=== PATIENT | male | born 1955 | race Caucasian/White ===

== ENCOUNTER 2016-12-10 16:25 | Inpatient (IN) | payer OTHER, MEDICAID ==
[~2016-12-10] VITALS: Ht 172.7 cm; Wt 176.9 kg
[2016-12-10 16:20] VITALS: BP 126/64
[2016-12-10] MEDS ORDERED: Albuterol ud Inhalation HHN ONE (17:00)
[2016-12-10] MEDS ORDERED: Ipratropium 0.02% Inh Soln 2.5ml UD HHN ONE (17:00)
[2016-12-10 17:18] LABS: MEAN CORPUSCULAR HGB CONC 28.4 G/DL (32.0-36.0); MEAN CORPUSCULAR VOLUME 98 FL (80-99); MEAN PLATELET VOLUME 6.8 FL (6.5-10.1); PLATELET COUNT 172 K/UL (150-450); RED BLOOD COUNT 4.16 M/UL (4.70-6.10); RED CELL DISTRIBUTION WIDTH 18.6 % (11.6-14.8); WHITE BLOOD COUNT 17.5 K/UL (4.8-10.8)
--- NOTE | 2016-12-10 17:42 | Emergency Room Report ---
History of Present Illness General Chief Complaint: Generalized Weakness Present Illness HPI 61YOM BIBEMS from home for SOB Progressively worse today Denies fever/chills, chest pain, abd pain History of CHF, asthma, cor pulmonale, respiratory failure, hypercapnia per d/w [place] [facility]ist On CPAP at night Known hypercarbia Allergies: Coded Allergies: CEPHALEXIN (Verified Allergy, Unknown, 12/10/16) Patient History Past Medical History: other - see hpi Past Surgical History: none Pertinent Family History: none Social History: Denies: smoking, alcohol use, drug use Immunizations: UTD Reviewed Nursing Documentation: PMH: Agreed, PSxH: Agreed Nursing Documentation-PMH Hx Cardiac Problems: Yes - CHF,COPD ,A-FIB,DM 2 Review of Systems All Other Systems: negative except mentioned in HPI Physical Exam Vital Signs Date Time Temp Pulse Resp B/P (MAP) Pulse Ox O2 Delivery O2 Flow Rate FiO2 12/10/16 16:13 98.8 100 20 126/64 94 Nasal Cannula 3.0 12/10/16 16:50 60 Sp02 EP Interpretation: reviewed, abnormal General Appearance: normal inspection, well appearing, no apparent distress, alert, GCS 15, non-toxic, mild distress, obese Head: normocephalic, atraumatic Eyes: bilateral eye PERRL, bilateral eye EOMI ENT: normal ENT inspection, hearing grossly normal, normal voice Neck: normal inspection, full range of motion, supple, no bony tend Respiratory: normal inspection, lungs clear, normal breath sounds, no respiratory distress, no retraction, no wheezing Cardiovascular #1: no edema, tachycardia, irregularly irregular Gastrointestinal: normal inspection, normal bowel sounds, non tender, soft, no guarding, no hernia Genitourinary: no CVA tenderness Musculoskeletal: normal inspection, back normal, normal range of motion, Farnaz' s Sign negative Neurologic: normal inspection, alert, oriented x3, responsive, park attendant III-XII nml as tested, motor strength/tone normal, speech normal Psychiatric: normal inspection, judgement/insight normal, mood/affect normal Skin: normal inspection, normal color, no rash Procedures Critical Care Time Critical Care Time CC time 40 minutes includes review of labs, EMR, paperwork, reassessment of BIPAP settings, ECG, CXR, d/w Hospitalist at [place], ordering ABx/nebs Medical Decision Making Diagnostic Impression: Primary Impression: Hypoxia Additional Impressions: COPD (chronic obstructive pulmonary disease) Qualified Codes: J44.1 - Chronic obstructive pulmonary disease with (acute) exacerbation Pneumonia Qualified Codes: J18.1 - Lobar pneumonia, unspecified organism Hypercarbia Non-ST elevated myocardial infarction ER Course Dr López approved #[id number] from [place] for admission SOB - likely multifactorial - COPD exacerbation, ?PNA right LL with elevated Leuks, NSTEMI with elevated trop. ECG is Atrial fib but not in RVR. - hypoxia improved on BIPAP, nebs, steroids - Was given Abx for likely PNA. Blood Cx pending - Known hypecarbia - last month CO2 was 94, CO2 80 on ABG. Not hypoxic or altered. - ASA, heparin for NSTEMI Endorsed to Dr Coyne for YASMANI admit at 615pm EKG Diagnostic Results Rate: tachycardiac Rhythm: other - Atrial Fib ST Segments: no acute changes Rhythm Strip Diag. Results EP Interpretation: yes Rate: 94 Rhythm: NSR, no PVC's, no ectopy Chest X-Ray Diagnostic Results Chest X-Ray Diagnostic Results : Chest X-Ray Ordered: Yes # of Views/Limited/Complete: 1 View Indication: Shortness of Breath EP Interpretation: Yes Interpretation: other - Cardiomegaly, ?RLL PNA Electronically Signed by: Dr Manuela Mast MD Last Vital Signs Date Time Temp Pulse Resp B/P (MAP) Pulse Ox O2 Delivery O2 Flow Rate FiO2 12/10/16 17:17 60 12/10/16 17:17 100 35 99 Bi-pap 12/10/16 16:20 98.8 126/64 3.0 Status: improved Disposition: ADMITTED INPATIENT Condition: Critical Referrals: [facility] (PCP) MANUELA MAST M.D. Dec 10, 2016 17:42
[2016-12-10 17:52] LABS: BAND NEUTROPHILS % (MANUAL) 3 % (0-8); LYMPHOCYTES % (MANUAL) 7 % (20-45); NEUTROPHILS % (MANUAL) 77 % (45-75); TOTAL CELLS COUNTED 100
[2016-12-10 17:53] LABS: ANISOCYTOSIS 1+; BASOPHILS % (MANUAL) 0 % (0-2); EOSINOPHILS % (MANUAL) 0 % (0-3); HYPOCHROMASIA 1+; PLATELET ESTIMATE ADEQUATE; PLATELET MORPHOLOGY NORMAL; POLYCHROMASIA 1+
[2016-12-10 18:17] LABS: ABG ALLEN TEST POSITIVE; ABG BASE EXCESS 35.4
[2016-12-10] MEDS ORDERED: Heparin 5000 units/ml inj IV ONE (18:30)
[2016-12-10] MEDS ORDERED: Heparin 25,000u/D5W 500ml 500 ML IV SCH (18:30)
[2016-12-10 18:54] LABS: REFLEX LACTIC ACID YES OR NO YES
[2016-12-10] MEDS ORDERED: UNOBMED (19:22)
[2016-12-10 19:30] VITALS: BP 123/78
[2016-12-10 20:16] LABS: APPEARANCE,URINE CLEAR; KETONES,URINE NEGATIVE (NEGATIVE); LEUKOCYTE ESTERASE ,URINE NEGATIVE (NEGATIVE); NITRITE,URINE NEGATIVE (NEGATIVE); PH,URINE 5 (4.5-8.0); PROTEIN,URINE 2+ (NEGATIVE); UROBILINOGEN,URINE 1 MG/DL (0.0-1.0)
[2016-12-10 20:31] LABS: BACTERIA,URINE FEW /HPF; RBC,URINE 0-2 /HPF (0 - 0); SQUAMOUS EPITHELIAL CELL,UR FEW /LPF (NONE/OCC); WBC,URINE 0-2 /HPF (0 - 0)
[2016-12-10 20:33] LABS: ALANINE AMINOTRANSFERASE 618 U/L (12-78); ALBUMIN/GLOBULIN RATIO 0.7 (1.0-2.7); ANION GAP 4 (5-15); ASPARTATE AMINO TRANSFERASE 739 U/L (15-37); CALCIUM 8.8 MG/DL (8.5-10.1); CARBON DIOXIDE 35 MMOL/L (21-32); CHLORIDE 97 MMOL/L (98-107); CKMB 1.8 NG/ML (0.0-3.6); CREATININE 2.2 MG/DL (0.55-1.30); GLOMERULAR FILTRATION RATE 30.4 mL/min (>60); POTASSIUM 5.2 MMOL/L (3.5-5.1); SODIUM 135 MMOL/L (136-145); TOTAL PROTEIN 7.5 G/DL (6.4-8.2)
[2016-12-10 20:35] LABS: INR 1.8 (0.9-1.1); PROTHROMBIN TIME 18.5 SEC (9.30-11.50)
[2016-12-10 21:00] VITALS: BP 112/70
[2016-12-10] MEDS ORDERED: Milk of Magnesia 30ml Ud ORAL PRN (21:30)
[2016-12-10] MEDS: Solu-MEDROL 40mg Inj IVP SCH (22:28)
[2016-12-10] MEDS: dilTIAZem HCl 60mg tab ORAL SCH (22:28)
[2016-12-10] MEDS: Albuterol/Ipratropium 3ml neb HHN SCH (22:43)
[2016-12-10] MEDS: Dabigatran 150mg cap ORAL SCH (23:29)
[2016-12-10] MEDS: Azithromycin 500 MG in D5W 275 ML IV SCH (23:30)
[2016-12-11] VITALS: BP 108/54
[2016-12-11] MEDS ORDERED: Vancomycin 1.5gm/D5W 250ml 250 ML IVPB ONE
--- NOTE | 2016-12-11 00:31 | Consultation ---
DATE OF CONSULTATION: 12/10/2016 CARDIOLOGY CONSULTATION CONSULTING PHYSICIAN: Jim High M.D. REQUESTING PHYSICIAN: Antoine Coyne M.D. REASON FOR CONSULTATION: Elevated troponin level in the setting of rapid atrial fibrillation and acute on chronic respiratory acidosis. HISTORY OF PRESENT ILLNESS: This is a 61-year-old obese male. He was brought into the emergency room by paramedics from his home. He has had progressive shortness of breath over the past several days much worse today. He has been on oral antibiotics for respiratory infection during this. He has not had fevers or chills. No chest pain, but has had progress difficulty with breathing. PAST MEDICAL HISTORY: Notable for asthma, cor pulmonale, history of respiratory failure, chronic hypercapnia, history of congestive heart failure, paroxysmal atrial fibrillation, coagulopathy due to use of dabigatran, and type 2 diabetes mellitus. ALLERGIES: Cephalexin. MEDICATIONS: Medications prior to admission not entirely clear, but certain drugs that are outlined above. SOCIAL HISTORY: No current smoking history, alcohol, or substance abuse. FAMILY HISTORY: Noncontributory. REVIEW OF SYSTEMS: No fevers. He has had productive cough. No change in bowel habits. He is on dabigatran due to atrial fibrillation. He has a history of congestive heart failure. He is not sure if he has had heart attacks in the past. He has been on a ventilator before. There is no history of seizure or stroke. He does have type 2 diabetes. He is not aware of any anti-lipid drugs that he takes. There is no known history of thyroid impairment. PHYSICAL EXAMINATION: GENERAL: Moderately obese male, in moderate to severe respiratory distress. VITAL SIGNS: Temperature 98.8, blood pressure 126/64, heart rate 100, and respiratory rate 20. HEENT: Conjunctivae are pink. Oropharynx clear. Mucous membranes moist. NECK: Obese. Jugular venous pressure is greater than 10. There is accessory muscle use. LUNGS: Increased AP diameter of the chest. Lungs with diminished breath sounds. Scattered expiratory wheezes and rhonchi. CARDIAC: Irregularly irregular. Normal S1 and S2 with no appreciable murmur. However, exam is obscured due to respiratory sounds. ABDOMEN: Obese, but soft and no tenderness elicited. SKIN: With rashes and left greater than right pretibial cellulitic changes. NEUROLOGIC: He is able to move all extremities equally. There is 1+ dependent lower extremity edema. LABORATORY AND DIAGNOSTIC DATA: EKG atrial fibrillation with rapid ventricular response and nonspecific ST-T wave changes. Influenza swabs are negative. White count is 17.5 and hemoglobin 11.6. Lactic acid 4.2. CK is 53. AST and ALT are over 600. Alkaline phosphatase is 200. Troponin was elevated at 0.454. Potassium 5.2, BUN 60, and creatinine 2.2. Albumin 3.1. ABG, 7.25, 81, and 108. IMPRESSION: 1. Acute on chronic respiratory acidosis. 2. Right lower lobe pneumonia. 3. Acute bronchospasm. 4. Chronic obstructive pulmonary disease exacerbation. 5. Acute on chronic diastolic congestive heart failure. 6. Atrial fibrillation with episodes of increased ventricular response. 7. Type 2 diabetes mellitus. 8. Acute on chronic renal failure. 9. Cellulitis of the lower extremity, left greater than right. 10. Tinea cruris. 11. Obesity. PLAN: 1. YASMANI monitoring. 2. BiPAP support. 3. Monitor acid-base parameters. 4. Limit oxygen delivery. 5. Broad-spectrum antibiotics. 6. Insulin titration per sliding scale. 7. Intravenous steroids. 8. Inhaled bronchodilators. 9. Hold further diuresis. 10. Trend natriuretic peptide assay. 11. Continue dabigatran for cardioembolic prophylaxis. 12. Serial troponin levels. 13. Anti-platelet therapy with low-dose aspirin. Jim High M.D. DR: TOMMY JOB#: [id number] CC:
[2016-12-11] MEDS: Albuterol/Ipratropium 3ml neb HHN SCH ×6 (02:59→22:57)
[2016-12-11 04:00] VITALS: BP 118/71
[2016-12-11] MEDS: Solu-MEDROL 40mg Inj IVP SCH (05:35)
[2016-12-11] MEDS: dilTIAZem HCl 60mg tab ORAL SCH ×3 (05:35→17:02)
[2016-12-11] MEDS ORDERED: NovoLOG Insulin Flexpen SUBQ SCH (06:30)
[2016-12-11 07:18] LABS: MEAN CORPUSCULAR HEMOGLOBIN 28.6 PG (27.0-31.0); MEAN CORPUSCULAR HGB CONC 29.5 G/DL (32.0-36.0); MEAN CORPUSCULAR VOLUME 97 FL (80-99); MEAN PLATELET VOLUME 8.3 FL (6.5-10.1); PLATELET COUNT 144 K/UL (150-450); RED BLOOD COUNT 3.98 M/UL (4.70-6.10); RED CELL DISTRIBUTION WIDTH 18.6 % (11.6-14.8); WHITE BLOOD COUNT 9.3 K/UL (4.8-10.8)
[2016-12-11] MEDS ORDERED: Digoxin 0.125mg tab ORAL ONE (08:00)
[2016-12-11 08:06] LABS: ALANINE AMINOTRANSFERASE 564 U/L (12-78); ALBUMIN/GLOBULIN RATIO 0.7 (1.0-2.7); ANION GAP 5 (5-15); ASPARTATE AMINO TRANSFERASE 488 U/L (15-37); CARBON DIOXIDE 34 MMOL/L (21-32); CHLORIDE 96 MMOL/L (98-107); CREATININE 1.8 MG/DL (0.55-1.30); GLOMERULAR FILTRATION RATE 38.3 mL/min (>60); POTASSIUM 4.6 MMOL/L (3.5-5.1); SODIUM 135 MMOL/L (136-145); TOTAL PROTEIN 7.6 G/DL (6.4-8.2)
[2016-12-11 08:15] VITALS: BP 119/63
--- NOTE | 2016-12-11 08:55 | History & Physical ---
History and Physical History & Physicial 61-year-old obese male brought into the emergency room by paramedics from his home. He has had progressive shortness of breath over the past several days much worse today. He has been on oral antibiotics for respiratory infection but failed to improved. He has not had fevers or chills. No chest pain, but has had progress difficulty with breathing. patient with respiratory acidosis requiring BIPAP and not transferable PAST MEDICAL HISTORY: Notable for asthma, cor pulmonale, history of respiratory failure, chronic hypercapnia, history of congestive heart failure, paroxysmal atrial fibrillation, coagulopathy due to use of dabigatran, and type 2 diabetes mellitus. sleep apnea ALLERGIES/MEDS: reviewed SOCIAL HISTORY: No current smoking history, alcohol, or substance abuse. FAMILY HISTORY: Noncontributory. REVIEW OF SYSTEMS: reviewed PHYSICAL EXAMINATION: GENERAL: Moderately obese male, alert off BIPAP VITAL SIGNS: reviewed HEENT: crowded oropharynx NECK: Obese. short. LUNGS: diminished breath sounds. Scattered expiratory wheezes and rhonchi. CARDIAC: Irregularly irregular. Normal S1 and S2 with no appreciable murmur. ABDOMEN: Obese, but soft and no tenderness SKIN: groin rash NEUROLOGIC: nonfocal but weak Labs Test 12/10/16 16:45 12/10/16 17:42 12/10/16 19:35 12/10/16 19:50 White Blood Count 17.5 K/UL (4.8-10.8) Red Blood Count 4.16 M/UL (4.70-6.10) Hemoglobin 11.6 G/DL (14.2-18.0) Hematocrit 40.9 % (42.0-52.0) Mean Corpuscular Volume 98 FL (80-99) Mean Corpuscular Hemoglobin 28.0 PG (27.0-31.0) Mean Corpuscular Hemoglobin Concent 28.4 G/DL (32.0-36.0) Red Cell Distribution Width 18.6 % (11.6-14.8) Platelet Count 172 K/UL (150-450) Mean Platelet Volume 6.8 FL (6.5-10.1) Neutrophils (%) (Auto) % (45.0-75.0) Lymphocytes (%) (Auto) % (20.0-45.0) Monocytes (%) (Auto) % (1.0-10.0) Eosinophils (%) (Auto) % (0.0-3.0) Basophils (%) (Auto) % (0.0-2.0) Differential Total Cells Counted 100 Neutrophils % (Manual) 77 % (45-75) Lymphocytes % (Manual) 7 % (20-45) Monocytes % (Manual) 13 % (1-10) Eosinophils % (Manual) 0 % (0-3) Basophils % (Manual) 0 % (0-2) Band Neutrophils 3 % (0-8) Platelet Estimate Adequate Platelet Morphology Normal Polychromasia 1+ Hypochromasia 1+ Anisocytosis 1+ Lactic Acid Level 4.20 mmol/L (0.66-2.22) 1.50 mmol/L (0.66-2.22) Troponin I 0.454 ng/mL (0.000-0.056) Arterial Blood pH 7.258 (7.350-7.450) Arterial Blood Partial Pressure CO2 81.0 mmHg (35.0-45.0) Arterial Blood Partial Pressure O2 108.7 mmHg (75.0-100.0) Arterial Blood HCO3 35.4 mmol/L (22.0-26.0) Arterial Blood Oxygen Saturation 96.9 % (92.0-98.0) Arterial Blood Base Excess 35.4 Collin Test Positive Urine Color Yellow Urine Appearance Clear Urine pH 5 (4.5-8.0) Urine Specific [place] 1.020 (1.005-1.035) Urine Protein 2+ (NEGATIVE) Urine Glucose (UA) Negative (NEGATIVE) Urine Ketones Negative (NEGATIVE) Urine Occult Blood Negative (NEGATIVE) Urine Nitrite Negative (NEGATIVE) Urine Bilirubin Negative (NEGATIVE) Urine Urobilinogen 1 MG/DL (0.0-1.0) Urine Leukocyte Esterase Negative (NEGATIVE) Urine RBC 0-2 /HPF (0 - 0) Urine WBC 0-2 /HPF (0 - 0) Urine Squamous Epithelial Cells Few /LPF (NONE/OCC) Urine Bacteria Few /HPF (NONE) Prothrombin Time 18.5 SEC (9.30-11.50) Prothromb Time International Ratio 1.8 (0.9-1.1) Activated Partial Thromboplast Time 47 SEC (23-33) Sodium Level 135 MMOL/L (136-145) Potassium Level 5.2 MMOL/L (3.5-5.1) Chloride Level 97 MMOL/L (98-107) Carbon Dioxide Level 35 MMOL/L (21-32) Anion Gap 4 (5-15) Blood Urea Nitrogen 60 mg/dL (7-18) Creatinine 2.2 MG/DL (0.55-1.30) Estimat Glomerular Filtration Rate 30.4 mL/min (>60) Glucose Level 119 MG/DL (74-106) Calcium Level 8.8 MG/DL (8.5-10.1) Total Bilirubin 0.6 MG/DL (0.2-1.0) Aspartate Amino Transf (AST/SGOT) 739 U/L (15-37) Alanine Aminotransferase (ALT/SGPT) 618 U/L (12-78) Alkaline Phosphatase 200 U/L (46-116) Total Creatine Kinase 53 U/L (26-308) Creatine Kinase MB 1.8 NG/ML (0.0-3.6) Creatine Kinase MB Relative Index 3.3 Total Protein 7.5 G/DL (6.4-8.2) Albumin 3.1 G/DL (3.4-5.0) Globulin 4.4 g/dL Albumin/Globulin Ratio 0.7 (1.0-2.7) Test 12/11/16 06:10 White Blood Count 9.3 K/UL (4.8-10.8) Red Blood Count 3.98 M/UL (4.70-6.10) Hemoglobin 11.4 G/DL (14.2-18.0) Hematocrit 38.5 % (42.0-52.0) Mean Corpuscular Volume 97 FL (80-99) Mean Corpuscular Hemoglobin 28.6 PG (27.0-31.0) Mean Corpuscular Hemoglobin Concent 29.5 G/DL (32.0-36.0) Red Cell Distribution Width 18.6 % (11.6-14.8) Platelet Count 144 K/UL (150-450) Mean Platelet Volume 8.3 FL (6.5-10.1) Neutrophils (%) (Auto) % (45.0-75.0) Lymphocytes (%) (Auto) % (20.0-45.0) Monocytes (%) (Auto) % (1.0-10.0) Eosinophils (%) (Auto) % (0.0-3.0) Basophils (%) (Auto) % (0.0-2.0) Sodium Level 135 MMOL/L (136-145) Potassium Level 4.6 MMOL/L (3.5-5.1) Chloride Level 96 MMOL/L (98-107) Carbon Dioxide Level 34 MMOL/L (21-32) Anion Gap 5 (5-15) Blood Urea Nitrogen 60 mg/dL (7-18) Creatinine 1.8 MG/DL (0.55-1.30) Estimat Glomerular Filtration Rate 38.3 mL/min (>60) Glucose Level 142 MG/DL (74-106) Calcium Level 9.0 MG/DL (8.5-10.1) Total Bilirubin 0.6 MG/DL (0.2-1.0) Aspartate Amino Transf (AST/SGOT) 488 U/L (15-37) Alanine Aminotransferase (ALT/SGPT) 564 U/L (12-78) Alkaline Phosphatase 186 U/L (46-116) Troponin I 0.279 ng/mL (0.000-0.056) Pro-B-Type Natriuretic Peptide 11902 (0-125) Total Protein 7.6 G/DL (6.4-8.2) Albumin 3.1 G/DL (3.4-5.0) Globulin 4.5 g/dL Albumin/Globulin Ratio 0.7 (1.0-2.7) IMPRESSION: 1. Acute on chronic respiratory failure 2. Right lower lobe pneumonia. 3. Bronchospasm. 4. Chronic obstructive pulmonary disease exacerbation. 5. Acute on chronic diastolic congestive heart failure. 6. Atrial fibrillation with episodes of increased ventricular response. 7. Type 2 diabetes mellitus. 8. Acute on chronic renal failure. 9. Cellulitis of the lower extremity, left greater than right. 10. Tinea cruris. 11. Obesity. PLAN: 1. transfer to [place]. 2. BiPAP support- not needed 3. Monitor acid-base parameters. 4. Limit oxygen delivery. 5. Broad-spectrum antibiotics as is. 6. Insulin titration per sliding scale. 7. Intravenous steroids- dc at present. 8. Inhaled bronchodilators to continue 9. cardiology appreciated 10. Serial troponin levels. 11. Anti-platelet therapy with low-dose aspirin. MARYANN RAHMAN Dec 11, 2016 08:55
[2016-12-11 09:07] LABS: ABG ALLEN TEST POSITIVE; ABG BASE EXCESS 5.7; ABG PCO2 76.2 mmHg (35.0-45.0)
[2016-12-11] MEDS: Aspirin Baby 81mg ORAL SCH ×2 (09:40→09:45)
[2016-12-11] MEDS: Metoprolol 25mg tab ORAL SCH ×2 (09:40→21:14)
[2016-12-11] MEDS: Miconazole 2% Cream 30gm TOPIC SCH ×2 (09:41→17:06)
[2016-12-11] MEDS: Furosemide 40mg tab ORAL SCH (09:41)
[2016-12-11] MEDS: Dabigatran 150mg cap ORAL SCH ×2 (09:42→21:14)
[2016-12-11 09:52] LABS: ANISOCYTOSIS 1+; BAND NEUTROPHILS % (MANUAL) 0 % (0-8); BASOPHILS % (MANUAL) 0 % (0-2); EOSINOPHILS % (MANUAL) 0 % (0-3); LYMPHOCYTES % (MANUAL) 2 % (20-45); NEUTROPHILS % (MANUAL) 96 % (45-75); PLATELET ESTIMATE DECREASED; PLATELET MORPHOLOGY NORMAL; TOTAL CELLS COUNTED 100
[2016-12-11 11:44] LABS: ABG ALLEN TEST POSITIVE; ABG BASE EXCESS 6.9; ABG PCO2 95.7 mmHg (35.0-45.0)
[2016-12-11 11:52] VITALS: BP 122/64
[2016-12-11] MEDS: Vancomycin 1250mg/D5W 250ml IVPB SCH (12:17)
[2016-12-11] MEDS: NovoLOG Insulin Flexpen SUBQ SCH ×3 (12:19→21:16)
--- NOTE | 2016-12-11 12:56 | Diagnostic Imaging Report ---
Indication: Dyspnea Comparison: None A single view chest radiograph was obtained. Findings: Heart is enlarged. Interstitial edema suspected. Evaluation limited. Bones are osteopenic. Impression: Suspected CHF/interstitial edema mild in degree
[2016-12-11 15:59] LABS: ABG PCO2 79.5 mmHg (35.0-45.0)
[2016-12-11 16:00] VITALS: BP 119/57
[2016-12-11 16:00] LABS: ABG ALLEN TEST POSITIVE; ABG BASE EXCESS 7.1
--- NOTE | 2016-12-11 17:30 | Progress Note ---
DATE: 12/11/2016 CARDIOLOGY PROGRESS NOTE SUBJECTIVE: The patient remains in the cardiac observation unit. His condition remains critical with guarded prognosis. He continues to have very tenuous cardiopulmonary parameters. The patient remains on BiPAP support with poor acid-based status. His blood gases today, pH 7.2105, pCO2 95, and pO2 68. OBJECTIVE: VITAL SIGNS: Blood pressure 122/64, pulse 80, respiratory rate 26 and no fever. LUNGS: Coarse rhonchi. Diminished breath sounds. Few wheezes. CARDIAC: Irregularly irregular rhythm. Normal S1 and S2. ABDOMEN: Obese. EXTREMITIES: With 1+ dependent edema. LABORATORY AND DIAGNOSTIC DATA: Troponin 0.279. Pro-natriuretic peptide over 15,000. AST and ALT 488/564. Sodium 135, potassium 4.6, bicarbonate 34, BUN 60 and creatinine 1.8. Albumin 3.1. IMPRESSION: 1. Chronic obstructive pulmonary disease with acute exacerbation. 2. Acute bronchospasm. 3. Community-acquired pneumonia. 4. Acute on chronic respiratory acidosis with respiratory failure. 5. Acute myocardial ischemia and possible non-ST elevation infarction. 6. Acute on chronic diastolic congestive heart failure. 7. Mild protein-calorie malnutrition. 8. Transaminitis, may be due to passive congestion. 9. Acute on chronic renal failure, slightly improved. 10. Paroxysmal atrial fibrillation, rate controlled. 11. Dabigatran-associated coagulopathy. The patient remains high risk. PLAN: 1. Adjust BiPAP. 2. Continue anticoagulation. 3. Intravenous steroids, inhaled bronchodilators and broad-spectrum antibiotics. 4. Limit oxygen delivery. 5. Insulin titration. 6. Serial troponin levels. 7. No beta-blockers in view of acute bronchospasm. 8. We will adjust diuretic dosing based on clinical parameters. Jim High M.D. DR: BELA JOB#: [id number] CC:
[2016-12-11 20:00] VITALS: BP 117/60
[2016-12-11] MEDS: Azithromycin 500 MG in D5W 275 ML IV SCH (23:08)
[2016-12-12] MEDS: Vancomycin 1250mg/D5W 250ml IVPB SCH (00:12)
[2016-12-12 00:45] VITALS: BP 104/57
[2016-12-12] MEDS: Albuterol/Ipratropium 3ml neb HHN SCH ×5 (03:23→19:35)
[2016-12-12 04:00] VITALS: BP 139/61
[2016-12-12] MEDS: dilTIAZem HCl 60mg tab ORAL SCH ×5 (06:00→18:00)
[2016-12-12] MEDS: NovoLOG Insulin Flexpen SUBQ SCH ×3 (06:13→17:05)
[2016-12-12 08:00] VITALS: BP 118/53
[2016-12-12] MEDS: Aspirin Baby 81mg ORAL SCH (09:00)
[2016-12-12] MEDS: Dabigatran 150mg cap ORAL SCH (09:42)
[2016-12-12] MEDS: Furosemide 40mg tab ORAL SCH (09:42)
[2016-12-12] MEDS: Miconazole 2% Cream 30gm TOPIC SCH ×2 (09:45→17:04)
[2016-12-12] MEDS: Metoprolol 25mg tab ORAL SCH (09:45)
--- NOTE | 2016-12-12 10:08 | General Progress Note ---
Assessment/Plan Problem List: (1) COPD (chronic obstructive pulmonary disease) ICD Codes: J44.9 - Chronic obstructive pulmonary disease, unspecified SNOMED: 50206165 Qualifiers: Qualified Codes: J44.1 - Chronic obstructive pulmonary disease with (acute) exacerbation (2) Hypercarbia ICD Codes: R06.89 - Other abnormalities of breathing SNOMED: 54831401 (3) Hypoxia ICD Codes: R09.02 - Hypoxemia SNOMED: 865201365, 49958838 (4) Pneumonia ICD Codes: J18.9 - Pneumonia, unspecified organism SNOMED: 697369884, 15928857 Qualifiers: Qualified Codes: J18.1 - Lobar pneumonia, unspecified organism (5) Non-ST elevated myocardial infarction ICD Codes: I21.4 - Non-ST elevation (NSTEMI) myocardial infarction SNOMED: 852546087 Status: stable, progressing Assessment/Plan po diruetics resp care o2 bipap prn abx transfer to [place] when bed available Subjective ROS Limited/Unobtainable: No Constitutional: Reports: malaise, weakness HEENT: Reports: no symptoms Cardiovascular: Reports: edema Respiratory: Reports: shortness of breath Gastrointestinal/Abdominal: Reports: no symptoms Genitourinary: Reports: no symptoms Neurologic/Psychiatric: Reports: no symptoms Endocrine: Reports: no symptoms Hematologic/Lymphatic: Reports: no symptoms Allergies: Coded Allergies: CEPHALEXIN (Verified Allergy, Unknown, 12/10/16) All Systems: reviewed and negative except above Subjective less sob. off bipap. eating breakfast. "hates" the food. no chest pain no palps. still c/o edema. Objective Last 24 Hour Vital Signs Date Time Temp Pulse Resp B/P (MAP) Pulse Ox O2 Delivery O2 Flow Rate FiO2 12/12/16 09:45 62 118/53 12/12/16 08:00 97.7 62 18 118/53 92 Nasal Cannula 4.0 12/12/16 08:00 45 12/12/16 06:00 68 139/61 12/12/16 05:11 71 24 92 Facial 45 12/12/16 04:00 97.7 74 23 139/61 94 Bi-pap 45 12/12/16 04:00 70 12/12/16 04:00 45 12/12/16 03:38 69 29 93 Bi-pap 45 12/12/16 03:23 67 30 92 Facial 45 12/12/16 03:23 67 30 92 Bi-pap 45 12/12/16 01:15 67 26 92 Facial 45 12/12/16 00:45 98.0 76 28 104/57 90 Bi-pap 45 12/12/16 00:00 45 12/12/16 00:00 68 104/63 12/12/16 00:00 73 12/11/16 23:08 78 24 94 Bi-pap 45 12/11/16 22:58 77 25 92 Bi-pap 45 12/11/16 22:58 77 25 92 Facial 45 12/11/16 21:14 91 119/57 12/11/16 20:53 91 30 95 Facial 45 12/11/16 20:00 91 12/11/16 20:00 97.7 84 26 117/60 84 Bi-pap 45 12/11/16 20:00 45 12/11/16 19:31 97 24 94 Bi-pap 45 12/11/16 19:30 96 27 94 Facial 45 12/11/16 19:16 92 Nasal Cannula 5.0 12/11/16 19:16 96 22 92 Nasal Cannula 5.0 12/11/16 19:16 Nasal Cannula 5.0 12/11/16 17:20 90 88 12/11/16 17:02 93 119/57 12/11/16 16:52 93 24 93 Facial 45 12/11/16 16:00 98.4 90 20 119/57 96 Bi-pap 45 12/11/16 15:17 86 12/11/16 15:00 45 12/11/16 14:56 90 27 95 Bi-pap 45 12/11/16 14:51 84 27 96 Facial 45 12/11/16 14:46 85 27 96 Bi-pap 45 12/11/16 13:03 84 26 96 Facial 50 12/11/16 12:16 80 122/64 12/11/16 12:00 50 12/11/16 11:52 97.8 80 26 122/64 91 12/11/16 11:48 86 27 92 Facial 50 12/11/16 11:43 93 12/11/16 11:21 77 28 92 Venturi Mask 12.0 50 12/11/16 11:11 77 26 92 Venturi Mask 12.0 50 Laboratory Tests 12/11/16 11:35: Arterial Blood pH 7.215*L, Arterial Blood Partial Pressure CO2 95.7*H, Arterial Blood Partial Pressure O2 68.5L, Arterial Blood HCO3 37.8H, Arterial Blood Oxygen Saturation 88.5L, Arterial Blood Base Excess 6.9, Collin Test Positive 12/11/16 15:54: Arterial Blood pH 7.278L, Arterial Blood Partial Pressure CO2 79.5*H, Arterial Blood Partial Pressure O2 73.2L, Arterial Blood HCO3 36.4H, Arterial Blood Oxygen Saturation 91.5L, Arterial Blood Base Excess 7.1, Collin Test Positive Height (Feet): 5 Height (Inches): 8.00 Weight (Pounds): 390 General Appearance: WD/WN, alert Neck: supple Cardiovascular: normal rate, regular rhythm Respiratory/Chest: chest wall non-tender, lungs clear, normal breath sounds, no respiratory distress Abdomen: normal bowel sounds, non tender, soft, no organomegaly Edema: severe edema JOSE NGUYEN Dec 12, 2016 10:08
[2016-12-12 10:53] LABS: ABG ALLEN TEST POSITIVE; ABG BASE EXCESS 10.4; ABG PCO2 72.4 mmHg (35.0-45.0)
[2016-12-12 12:00] VITALS: BP 124/62
[2016-12-12 16:00] VITALS: BP 116/65
[2016-12-12] MEDS ORDERED: NS 275ml ONE (16:19)
[2016-12-12] MEDS ORDERED: Tubing IV Secondary IV ONE (16:19)
[2016-12-12 18:00] VITALS: BP 116/65
[2016-12-12] MEDS ORDERED: Vancomycin 1gm/D5W 275ml IVPB SCH ×2 (18:00)
--- NOTE | 2016-12-14 03:45 | Progress Note ---
DATE: 12/12/2016 CARDIOLOGY PROGRESS NOTE SUBJECTIVE: The patient with less shortness of breath. He is off BiPAP more frequently. He is able to eat. He has no chest pain. His monitored rhythm is atrial fibrillation with rate control. OBJECTIVE: GENERAL: Moderately obese. LUNGS: Diminished breath sounds. Few rhonchi. HEART: Irregularly irregular rhythm. Normal S1 and S2. ABDOMEN: Soft. EXTREMITIES: Still with 1 to 2+ dependent edema. LABORATORY DATA: Troponin has decreased to 0.075. IMPRESSION: 1. Acute myocardial infarction. 2. Acute on chronic diastolic congestive heart failure. 3. Mild protein-calorie malnutrition. 4. Passive congestion of the liver with transaminitis. 5. Chronic obstructive pulmonary disease with acute exacerbation and acute bronchospasm. 6. Community-acquired pneumonia. 7. Acute on chronic renal failure. 8. Acute on chronic respiratory acidosis with hypoxia, improving. PLAN: 1. Continue BiPAP as needed. 2. Monitor acid-base parameters. 3. Diuresis. 4. Advance and optimize anti-failure and anti-ischemic regimen. 5. Continue cardioembolic prophylaxis with dabigatran. 6. Await transfer to [facility] where cardiac catheterization may be considered once pulmonary parameters have stabilized. Jim High M.D. DR: Syl JOB#: [id number] CC:
--- NOTE | 2016-12-14 15:23 | Discharge Summary ---
Discharge Summary Hospital Course Date of Admission Dec 10, 2016 at 17:20 Date of Discharge Dec 12, 2016 at 21:00 Admitting Diagnosis COPD exac/hypoxia HPI Crow Davis is a 61 year old male who was admitted on Dec 10, 2016 at 17:20 for Chronic Obstructive Pulomary Disease/Hypoxia Hospital Course dc summary #[id number] Discharge Discharge Disposition Patient was transferred to [facility] for higher level of care and cardiac cath Discharge Diagnoses: Discharge Instructions Discharge Instructions Special Instructions I have been assigned to complete a D/C Summary on this account. I was not involved in the patient management Mckenzie Young NP ([place]) Dec 14, 2016 15:23
--- NOTE | 2016-12-15 17:15 | Discharge Summary 2 SIG ---
DATE OF ADMISSION: 12/10/2016 DATE OF DISCHARGE: 12/12/2016 REASON FOR ADMISSION: 61-year-old male with a history of COPD, asthma, CHF, cor pulmonale, respiratory failure, and CPAP at night due to chronic hypercapnia, presented to emergency department with shortness of breath, which was getting progressively worse. The patient denied fever, chills, chest pain, or abdominal pain. Workup in the emergency room revealed hypoxia. The patient was initially placed on nasal cannula and then was placed on the BiPAP. Lactic acid elevated-4.2. Elevated troponin, initially- 0.454. BUN -60 and creatinine -2.2. Potassium- 5.2. Lactic acid- 4.2. AST -739 and ALT -618. Chest x-ray consistent with CHF. WBC -17.5. The patient was admitted for further management. HOSPITAL COURSE: The patient was admitted. Cardiology and Pulmonary consult were requested. The patient was placed on the BiPAP. The patient was followed up with serial ABG. Acid base parameters were monitored, and settings were titrated accordingly. Oxygen delivery was limited just to keep saturation above 90%. EKG revealed atrial fibrillation with occasional episodes of rapid ventricular response. Serial troponin were trending down- prior to the transfer last troponin - 0.075. The patient initially was started on heparin drip. Cardiology was closely followed. The patient was diuresed. The patient was on heparin drip along with antiplatelet and statin. The patient was pancultured and started on empiric antibiotics. Chest x-ray with right lower lobe pneumonia. Blood sugar was managed with sliding scale of insulin. Nebulizing treatment with bronchodilator was continued. Blood pressure was stable. Subsequently, when the troponin came down, the patient was stable for transfer via [facility] ambulance to [facility] for higher level of care and cardiac catheterization. FINAL DIAGNOSES: 1. Acute on chronic respiratory failure with respiratory acidosis and hypoxia. 2. Acute myocardial infarction, oet-XW-glbqdur elevation myocardial infarction. 3.. Acute chronic obstructive pulmonary disease exacerbation with bronchospasm. 4. Acute on chronic diastolic congestive heart failure. 6. Right lower lobe pneumonia. 7. Atrial fibrillation with episodes of increased ventricular response. 8. Diabetes mellitus type 2. 9. Acute on chronic renal failure. 10. Bilateral lower extremity cellulitis, left more than right. 11. Tinea cruris. 12. Obesity. 13. Passive liver congestion with transaminitis. DISCHARGE MEDICATIONS: List of medications was sent to [facility]. DISCHARGE INSTRUCTIONS: The patient was transferred to [facility] as capitated per [facility] for higher level of care and cardiac catheterization. Antoine Coyne M.D. I have been assigned to dictate discharge summary on this account and I was not involved in the patient's management. Mckenzie Young N.P. ([place]) DR: FROY JOB#: [id number] CC: DEANNA
== END 2016-12-12 21:00 | disposition short-term general hospital (02) | DRG 280 ==
LOC: EDBD 16:25 → EMR 17:19 → 2W 17:20 → EDBEDREQ 18:28 → 2W 12-11 08:39
PROC: 5A09457 Assistance with Respiratory Ventilation, 24-96 Consecutive Hours, Continuous Positive Airway Pressure (ICD-10-PCS; principal; 2016-12-10)
DX: I21.4 Non-ST elevation (NSTEMI) myocardial infarction (principal); J96.21 Acute and chronic respiratory failure with hypoxia; I50.33 Acute on chronic diastolic (congestive) heart failure; J18.9 Pneumonia, unspecified organism; N17.9 Acute kidney failure, unspecified; E87.2 Acidosis; D68.9 Coagulation defect, unspecified; K76.1 Chronic passive congestion of liver; E44.1 Mild protein-calorie malnutrition; L03.115 Cellulitis of right lower limb; J44.1 Chronic obstructive pulmonary disease with (acute) exacerbation; L03.116 Cellulitis of left lower limb; E11.9 Type 2 diabetes mellitus without complications; B35.6 Tinea cruris; N18.9 Chronic kidney disease, unspecified; E66.9 Obesity, unspecified; Z88.1 Allergy status to other antibiotic agents; I25.9 Chronic ischemic heart disease, unspecified; I48.0 Paroxysmal atrial fibrillation
CPT/HCPCS: 36415; 36600; 71010; 80053; 80202; 81003; 82550; 82553; 82803; 82962; 83605; 83880; 84484; 85007; 85025; 85610; 85730; 86710; 87040; 87070; 87081; 87181; 87205; 93005; 94640; 94660; 94664; 94760; J1815; J7620; J8499